=== PATIENT | female | born 1970 | race Caucasian/White ===

== ENCOUNTER 2017-12-31 09:41 | Emergency (ER) | payer OTHER ==
[~2017-12-31] VITALS: Ht 172.7 cm; Wt 66.2 kg
[2017-12-31 09:46] VITALS: Ht 172.7 cm; Wt 66.2 kg
[2017-12-31 10:45] LABS: microscopic required? NO
[2017-12-31 10:52] LABS: CARBON DIOXIDE 31.9 mmol/L (21-32); CHLORIDE SERUM 106 mmol/L (98-107); CREATININE SERUM 0.8 mg/dL (0.6-1.0); GLUCOSE SERUM 90 mg/dL (74-106); POTASSIUM SERUM 4.4 mmol/L (3.5-5.1); SODIUM SERUM 143 mmol/L (136-145)
[2017-12-31 10:57] LABS: ALBUMIN 3.7 g/dL (3.4-5.0); ALKALINE PHOSPHATASE 114 U/L (46-116); ALT/SGPT 16 U/L (14-59); AMYLASE 48 U/L (25-115); AST/SGOT 15 U/L (15-37); BASOPHIL % 0.5 % (0-2); BILIRUBIN TOTAL 0.3 mg/dL (0.20-1.00); CHOLESTEROL 229 mg/dL (<200); HDL CHOLESTEROL 56 mg/dL (40-60); LIPASE 126 IU/L (73-393); PLATELET COUNT 281 x10^3mcL (130-400); RED CELL DISTRIBUTION WIDTH 13.3 % (11.5-14.5); TOTAL PROTEIN, SERUM 7.2 g/dL (6.4-8.2)
[2017-12-31 11:16] LABS: urine erythrocyte NEGATIVE (NEGATIVE)
[2017-12-31 12:28] LABS: AMPHETAMINE QUAL UR NONE DETECTED (See below)
[2017-12-31 13:00] VITALS: BP 109/45
== END 2017-12-31 13:00 | disposition home or self-care (01) ==
LOC: ED 09:41
PROVIDERS: Emergency Medicine
DX: R07.9 Chest pain, unspecified (principal); K58.9 Irritable bowel syndrome, unspecified; N30.10 Interstitial cystitis (chronic) without hematuria
CPT/HCPCS: 36415; 83880; Q0092

== ENCOUNTER 2019-01-18 06:38 | Emergency (ER) | payer OTHER ==
[~2019-01-18] VITALS: Ht 172.7 cm; Wt 66.2 kg
[2019-01-18 06:44] VITALS: Ht 172.7 cm; Wt 66.2 kg
[2019-01-18 08:44] VITALS: BP 122/83
== END 2019-01-18 08:45 | disposition home or self-care (01) ==
LOC: ED 06:38
DX: S01.311A Laceration without foreign body of right ear, initial encounter (principal); S41.132A Puncture wound without foreign body of left upper arm, initial encounter; Z88.8 Allergy status to other drugs, medicaments and biological substances; Z88.2 Allergy status to sulfonamides; Z90.89 Acquired absence of other organs; W54.0XXA Bitten by dog, initial encounter; Y93.89 Activity, other specified; Y92.89 Other specified places as the place of occurrence of the external cause; Y99.8 Other external cause status
CPT/HCPCS: 90715; J0690; J1885; J2001; Q0092